=== PATIENT | female | born 1955 | race Caucasian/White ===

== ENCOUNTER 2017-05-21 12:06 | Observation (INO) | payer OTHER ==
[~2017-05-21] VITALS: Ht 160 cm; Wt 56.4 kg
[2017-05-21] MEDS ORDERED: BUPROPION XL300 MG PO (12:51)
[2017-05-21] MEDS ORDERED: DULERA 200 MCG8.8 GM INH (12:52)
[2017-05-21] MEDS ORDERED: SPIRIVA18 MCG INH (12:52)
[2017-05-21] MEDS ORDERED: PROVENTIL HFA6.7 GM INH (12:52)
[2017-05-21] MEDS ORDERED: XANAX0.25 MG PO (12:53)
[2017-05-21] MEDS ORDERED: TRIAMTERENE-HCT1 TA1 PO (12:55)
--- NOTE | 2017-05-21 13:00 | NUR ---
ADMITTED TO ROOM [address] PRIEST'S OFFICE AT THIS TIME. ALERT AND ORIENTED AND AMBULATES INDEPENDENTLY. IV TO RIGHT FOREARM X2 ATTEMPTS. HISTORY AND ASSESSMENT DONE PER FLOWSHEET. ORIENTED PT TO ROOM AND CALL LIGHT. DENIES NEEDS FOR PAIN OR NAUSEA MEDICATION AT THIS TIME. WILL CONTINUE WITH PLAN OF CARE.
[2017-05-21 13:03] VITALS: BP 107/66; Ht 160 cm; Wt 56.4 kg
[2017-05-21 13:51] LABS: BASOPHILS 0.8 % (0-2); HEMATOCRIT 39.9 % (36.0-48.0); HEMOGLOBIN 13.1 g/dL (12-16); IMMATURE GRANULOCYTES 0.2 % (0-5); LYMPHOCYTES 32.5 % (15-50); MCH 29.2 pg (26.0-34.0); MCHC 32.8 g/dL (31.0-37.0); MCV 89.1 fL (80.0-100.0); MONOCYTES 7.5 % (2-11); PLATELET COUNT 203 10x3/uL (130-400); RBC 4.48 10x6/uL (4.00-5.40); RDW 13.5 % (11.5-14.5); WBC 4.8 10x3/uL (4.8-10.8)
[2017-05-21 13:58] LABS: INR 0.95 (0.85-1.17); PROTIME 12.5 SECONDS (11.6-15.0)
[2017-05-21 14:15] LABS: ALBUMIN 3.6 g/dL (3.4-5.0); ALKALINE PHOSPHATASE 63 U/L (46-116); ALT (SGPT) 24 U/L (10-68); AMYLASE - SERUM 51 U/L (25-115); BILIRUBIN - INDIRECT 0.26 mg/dL (0.00-1.00); BILIRUBIN - TOTAL 0.36 mg/dL (0.2-1.3); CALC OSMOLALITY 277 mosm/kg (275-300); CALCIUM 8.4 mg/dL (8.5-10.1); CARBON DIOXIDE 28.3 mmol/L (21.0-32.0); CHLORIDE - SERUM 104 mmol/L (98-107); CREATININE - SERUM 0.7 mg/dL (0.6-1.3); GLUCOSE 78 mg/dL (74-106); LIPASE 160 U/L (73-393); POTASSIUM - SERUM 3.8 mmol/L (3.5-5.1); PROTEIN - SERUM 6.5 g/dL (6.4-8.2); SODIUM 139 mmol/L (136-145); UREA NITROGEN 15 mg/dL (7-18); eGFR NON AFRICAN AMERICAN 90 mL/min (90-120)
[2017-05-21 16:15] VITALS: BP 97/54
--- NOTE | 2017-05-21 18:10 | NUR ---
IV TO RIGHT FOREARM D/C WITH CATH TIP INTACT. DISCHARGE INSTRUCTIONS REVIEWED WITH PT AND SHE DENIES QUESTIONS OR CONCERNS. ORDER FOR SURGERY FAXED TO [facility], SO THAT IT COULD BE SCHEDULED FOR SUNDAY.
== END 2017-05-21 18:20 | disposition home or self-care (01) ==
LOC: D.MS 12:06 → OBSVTIME 12:06 → D.MS 18:20
PROVIDERS: ADMIT Family Medicine
DX: K80.70 Calculus of gallbladder and bile duct without cholecystitis without obstruction (principal); F41.9 Anxiety disorder, unspecified; J45.909 Unspecified asthma, uncomplicated

== ENCOUNTER 2017-05-23 07:21 | Day surgery (SDC) | payer OTHER ==
[~2017-05-23] VITALS: Ht 160 cm; Wt 59.4 kg
[~2017-05-23 07:21] MED LIST: BUPROPION XL300 MG PO; DULERA 200 MCG8.8 GM INH; PROVENTIL HFA6.7 GM INH; SPIRIVA18 MCG INH; TRIAMTERENE-HCT1 TA1 PO; XANAX0.25 MG PO
[2017-05-23 08:17] VITALS: BP 99/65; Ht 160 cm; Wt 59.4 kg
[2017-05-23] MEDS ORDERED: HYDROCODON-ACE1 EAC7 PO (13:52)
== END 2017-05-23 16:15 | disposition home or self-care (01) ==
LOC: D.PAN 07:21 → D.OPS 10:15 → D.PAN 10:15 → D.OPS 10:45 → D.PAN 16:15
DX: K81.1 Chronic cholecystitis (principal); Z01.812 Encounter for preprocedural laboratory examination

== ENCOUNTER → 2018-04-10 09:47 | Outpatient (CLI) | payer OTHER ==
[2017-05-23 08:17] VITALS: BMI 23.2
[~2018-04-10 09:47] MED LIST changes: +HYDROCODON-ACE1 EAC7 PO
== END | disposition home or self-care (01) ==
LOC: D.US 09:47
DX: R60.0 Localized edema (principal)

== ENCOUNTER 2018-09-26 07:20 | Outpatient (CLI) | payer OTHER ==
[2018-09-24 11:19] LABS: HEMATOCRIT 41.8 % (36.0-48.0); HEMOGLOBIN 13.7 g/dL (12-16); MCH 29.3 pg (26.0-34.0); MCHC 32.8 g/dL (31.0-37.0); MCV 89.5 fL (80.0-100.0); MEAN PLATELET VOLUME 10.4 fL (7.4-10.4); RBC 4.67 10x6/uL (4.00-5.40); RDW 13.6 % (11.5-14.5); WBC 6.8 10x3/uL (4.8-10.8)
[2018-09-24 11:39] LABS: ANION GAP 13.2 mmol/L (8-16); CALCIUM 8.8 mg/dL (8.5-10.1); CARBON DIOXIDE 27.2 mmol/L (21.0-32.0); CREATININE - SERUM 1.1 mg/dL (0.6-1.3); POTASSIUM - SERUM 4.4 mmol/L (3.5-5.1)
[~2018-09-26] VITALS: Ht 160 cm; Wt 66.2 kg
[~2018-09-26 07:20] MED LIST changes: +ADVAIR HFA [SP]12 GM INH
[2018-09-26 07:45] VITALS: BP 105/60; Ht 160 cm; Wt 66.2 kg
== END 2018-09-26 14:40 | disposition home or self-care (01) ==
LOC: D.OPS 07:20 → EDSTATUS 07:30 → D.OPS 08:00
PROVIDERS: Anesthesiology
DX: N81.10 Cystocele, unspecified (principal); Z01.810 Encounter for preprocedural cardiovascular examination; Z01.811 Encounter for preprocedural respiratory examination; Z01.812 Encounter for preprocedural laboratory examination; Z53.9 Procedure and treatment not carried out, unspecified reason

== ENCOUNTER → 2018-11-13 08:25 | Outpatient (CLI) | payer OTHER ==
[2018-09-26 07:45] VITALS: BMI 25.9
--- NOTE | 2018-11-19 10:22 | ST ---
PATIENT:ALEJANDRO SAENZ MEDICAL RECORD: [id number] SEX: F LOCATION:[facility] ORDER #: ADMISSION DATE: 11/13/18 AGE OF PATIENT: 63 REFERRING PHYSICIAN: INTERPRETING PHYSICIAN: CHERIE BUSH MD DATE OF SERVICE: 11/13/2018 PROCEDURE: Nuclear stress test. INDICATION: Chest pain, syncope, palpitations. She was exercised on standard Lexiscan protocol with 33 mCi of sestamibi injected at peak stress, 10 mCi were used previously for rest images. FINDINGS: Gated SPECT reveals preserved ejection fraction at 60% with good wall motion and thickening and brightening throughout all segments. SPECT imaging Cardiolite was used as myocardial fusion agent. There is homogeneous uptake throughout all segments at rest and stress with no evidence of inducible ischemia or previous infarction. OVERALL IMPRESSION: 1. This is a normal nuclear stress test with no evidence of inducible ischemia or previous infarction. 2. Gated SPECT reveals a preserved ejection fraction at 60%. In this patient with ongoing symptomatology, the current scan does not suggest the presence of hemodynamically significant coronary artery disease. Evaluate noncardiac etiology of chest pain. TRANSINT:[id number] Voice Confirmation ID: [id number] DOCUMENT ID: [id number] CHERIE BUSH MD at 1022 CC: MAUREEN PRIEST [id number] DICTATION DATE: 11/13/18 1535 ANESTHESIOLOGIST ATTENDING: 11/14/18 0745 [facility] CLI 11/13/18 [facility] [address] [place] [address]
== END | disposition home or self-care (01) ==
LOC: D.HCCARDIO 08:25
DX: R55 Syncope and collapse (principal)

== ENCOUNTER 2019-06-05 11:23 | Outpatient (CLI) | payer MEDICARE, OTHER ==
[~2019-06-05] VITALS: Ht 160 cm; Wt 65.2 kg
--- NOTE | ~2019-06-05 | HEMODYNAMI ---
PATIENT:ALEJANDRO SAENZ MEDICAL RECORD: [id number] : 53 LOCATION:[facility] ADMISSION DATE: 06/05/19 Generatedon:06/05/201914:39 Patient name: ALEJANDRO SAENZ Patient #: [id number] SSN: [id number] : 1955 Date of study: 06/05/2019 Page: Of Hemodynamic Procedure Report Patient Data Patient Demographics Procedure consent was obtained First Name: ALEJANDRO Gender: Female Last Name: DANY : 1955 Middle Initial: DONNA Age: 64 year(s) Patient #: [id number] Race: Unknown SSN: [id number] Additional ID: [id number] Contact details [address]: [address] [place] [address] State: [place] City: [place] Zip code: [address] Admission Admission Data Admission Date: 06/05/2019 Admission Time: 11:23 Arrival Date: 06/05/2019 Arrival Time: 13:30 Admit Source: Other Insurance Payor: Medicare Procedure Procedure Types Cath Procedure Diagnostic Procedure PPM/ICD Loop Recorder Implant Procedure Description Procedure Date Procedure Date: 06/05/2019 Procedure Start Time: 14:25 Procedure End Time: 14:34 Procedure Staff Name Function Yola Brock RT Monitor Oliver Alatorre RN Nurse Codey Sanchez MD Performing Physician Bernadette Vance RT Scrub Procedure Data Cath Procedure Estimated blood loss: 2 ml Procedure Complications No complications Procedure Medications Medication Administration Route Dosage Oxygen etCO2 Nasal cannula 2 l/min Lidocaine 2% added to field 20 Vancomycin I.V.P.B 500 mg Versed I.V. 2 mg Fentanyl I.V. 50 mcg Fentanyl I.V. 50 mcg Hemodynamics Rest Heart Rate: 65 (bpm) Snapshots Pre Cath Intra NCS Post Cath Vital Signs Time Heart Resp SPO2 etCO2 NIBP (mmHg) Rhythm Pain Sedation Rate (ipm) (%) (mmHg) Status Level (bpm) 13:53:32 76 18 92 0 119/77(104) NSR 0 (11) 10(A) , No pain 13:57:40 77 14 94 0 124/78(99) NSR 0 (11) 10(A) , No pain 14:01:49 74 13 96 39 118/73(95) NSR 0 (11) 10(A) , No pain 14:05:57 78 12 95 39 112/71(95) NSR 0 (11) 10(A) , No pain 14:10:05 76 12 96 42.7 111/69(89) NSR 0 (11) 10(A) , No pain 14:14:11 72 12 97 36.7 105/69(86) NSR 0 (11) 10(A) , No pain 14:18:17 65 22 98 37.4 114/64(91) NSR 0 (11) 10(A) , No pain 14:22:24 71 11 96 35.9 103/66(80) NSR 0 (11) 10(A) , No pain 14:26:28 72 14 98 40.4 109/68(83) NSR 0 (11) 10(A) , No pain 14:30:34 71 12 99 38.9 115/72(85) NSR 0 (11) 10(A) , No pain 14:34:40 67 13 98 38.2 112/75(89) NSR 0 (11) 10(A) , No pain Medications Time Medication Route Dose Verified Delivered Reason Notes Effectiv eness by by 14:00:46 Oxygen etCO2 2 Codey Boyd used for Nasal l/min St Chandu Alatorre RN procedure cannula 14:00:54 Lidocaine added 20ml Codey Alegre for local 2% to vial LauraChandu Sanchez anesthetic field MD CAZARES 14:01:11 Vancomycin I.V.P.B [address] Per mg [address] Chandu Alatorre RN physician 14:13:03 Versed I.V. 2 [address] Chandu Alatorre RN sedation 14:13:08 Fentanyl I.V. 50 Codey Boyd for mcg [address] Chandu Alatorre RN sedation 14:17:26 Fentanyl I.V. [address] for mcg [address] Chandu Alatorre RN sedation Procedure Log Time Note 13:37:18 Informed consent obtained and on chart 13:37:27 Diagnostic Cath Status : Elective 13:40:28 Admit Source: Other 13:40:41 Arrival Date: 06/05/2019 1:30:00 PM 13:41:06 Insurance Payor : Medicare 13:41:27 Oliver Alatorre RN sent for patient. Start room use. 13:41:34 ACC Patient presents with Non-STEMI CCS Anginal Class 0--No symptoms, no angina. 13:41:49 Procedure Status PPM/ Gen Change/ Lead Revision/ Temp. 13:41:51 Time tracking: Regular hours (M-F 7:00 - 5:00) 13:41:55 Plan of Care:Hemodynamics will remain stable., Cardiac rhythm will remain stable., Comfort level will be maintained., Respiratory function will remain adequate., Patient/ family verbilizes understanding of procedure., Procedure tolerated without complication., Recovers from procedure without complications.. 13:48:14 Patient received from Pre/Post Procedure Room to CCL 2 Alert and oriented. Tansferred to table in Supine position. 13:48:16 Correct patient and procedure confirmed by team. 13:48:16 Warm blankets applied, and curtis hugger turned on for patient comfort. 13:48:17 ECG and BP/O2 sat monitors applied to patient. 13:52:26 Vital chart was started 13:52:59 Baseline sample Acquired. 13:53:03 Rhythm: sinus rhythm 13:53:06 Full Disclosure recording started 13:53:18 H&P Date Dictated: 06/05/2019 Within 30 days and on chart., H&P Addendum completed by physician on day of procedure. (MUST COMPLETE FOR ALL OUTPATIENTS). 13:53:19 Pre-procedure instructions explained to patient. 13:53:20 Pre-op teaching completed and patient verbalized understanding. 13:53:25 Family in waiting room. 13:53:35 Patient NPO since Midnight. 13:53:39 Is the patient allergic to Iodine/contrast media? No. 13:53:41 Was the patient premedicated? No 13:53:54 Is patient on blood thinner?No 13:53:55 Patient diabetic? No. 13:54:01 Previous problem with sedation/anesthesia? No ? 13:54:06 Snore? Yes 13:54:07 Sleep apnea? No 13:54:08 Deviated septum? No 13:54:09 Opens mouth fully? Yes 13:54:10 Sticks out tongue? Yes 13:54:16 Airway obstruction? Yes copd 13:54:21 Dentures? No ? 13:57:29 Pre procedure: right dorsailis pedis pulse 2+ Normal; easily identifiable; not easily obliterated 13:57:31 Pre procedure: left dorsailis pedis pulse 2+ Normal; easily identifiable; not easily obliterated 13:57:35 Patient pain scale 0/10 ?. 13:57:49 IV patent on arrival in left forearm with 0.9% NaCl at [facility]. 13:57:51 Lab results completed and on chart. 13:57:59 Mid Chest area was prepped with chlora-prep and draped in sterile fashion 13:58:00 Sharps counted by scrub and verified by R.N. 13:58:00 Alarms reviewed by R. N. 13:58:03 Physician paged 14:00:46 Oxygen 2 l/min etCO2 Nasal cannula was administered by Oliver Alatorre RN; used for procedure; 14:00:54 Lidocaine 2% 20ml vial added to field was administered by Codey Sanchez MD; for local anesthetic; 14:01:11 Vancomycin 500 mg I.V.P.B was administered by Oliver Alatorre RN; Per physician; 14:04:05 [employer] customer engagement representative sofiya villareal present for procedure. 14:09:27 Physician arrived 14:09:28 --------ALL STOP TIME OUT------ 14:09:29 Final Timeout: patient, procedure, and site verified with staff and physician. All members of the team are in agreement. 14:09:36 Mid Chest site verified by team. 14:09:41 Fire Safety Assessment: A--An alcohol-based skin anteseptic being used preoperatively., C--Open oxygen or nitrous oxide is being used., D--An ESU, laser, or fiber-optic light is being used. 14:09:52 Physical assessment completed. ASA score P 2 - A patient with mild systemic disease as per Codey Sanchez MD. 14:10:14 Sedation plan: IV Moderate Sedation Medication:Versed, Fentanyl 14:13:03 Versed 2 mg I.V. was administered by Oliver Alatorre RN; for sedation; 14:13:08 Fentanyl 50 mcg I.V. was administered by Buffie Alatorre RN; for sedation; 14:17:26 Fentanyl 50 mcg I.V. was administered by Oliver Alatorre RN; for sedation; 14:22:18 Pre sharps counted by scrub and verified by RN: Sutures: 0; Sponges: 5; Stick needles: 0; Skin needles: 1; Blade: 1; Cautery: 0 14:22:30 Procedure started. 14:25:55 Lidocaine 2% was administered to mid chest by Codey Sanchez MD . 14:25:59 Incision made to mid chest. 14:29:57 Linq was inserted subcutaneously to mid chest. 14:33:29 incision closed with dermabond 14:33:42 Mid Chest incision was dressed with Mepilex dressing. 14:33:50 Procedure ended.(Physican Out) 14:33:54 Insertion/operative site no bleeding no hematoma. 14:33:59 Post procedure rhythm: unchanged. 14:34:02 Estimated blood loss: 2 ml 14:34:04 Post procedure instruction explained to patient.Patient verbalizes understanding. 14:34:11 Procedure and supply charges have been captured, reviewed, submitted and are correct. 14:34:16 Procedure Complication : No complications 14:34:18 Vital chart was stopped 14:34:19 See physician's report for complete and final results. 14:34:22 Report given to Pre/Post Procedure Room. 14:34:35 Patient transfered to Pre/Post Procedure Room with Stretcher. 14:34:39 Full Disclosure recording stopped 14:34:39 Procedure ended. 14:34:44 End room use (Document Last) 14:35:47 Dermabond Pen opened to sterile field. 14:36:28 Medtronic Linq Loop Recorder opened to sterile field. Device Usage Item Name Manufacture Quantity Catalog Hospital Part Current Minimal Lot# / Number Charge Number Stock Stock Serial# Code Dermabond Ethicon 1 [id number] 5 Pen Medtronic Medtronic 1 [id number] 5 Linq Loop Recorder Signature Audit [place] Stage Time Signature Unsigned Intra-Procedure 06/05/2019 Yola Brock 2:39:04 PM RT(R) Signatures Monitor : Yola Brock RT Signature : Date : Time : Nurse : Buffie Alatorre RN Signature : Date : Time : Performing Physician : Signature : Codey Nicolas John MD Date : Time : [address] [place] [address]
[2019-06-05] MEDS ORDERED: PROPAFENONE HC225 MG PO (12:02)
[2019-06-05] MEDS ORDERED: SPIRIVA RESPIMAT4 G1 INH (12:03)
[2019-06-05] MEDS ORDERED: ALBUTEROL SULF8.5 GM INH (12:03)
[2019-06-05] MEDS ORDERED: DULERA 200 MCG8.8 GM INH (12:03)
[2019-06-05 12:14] VITALS: BP 129/57; Ht 160 cm; Wt 65.2 kg
--- NOTE | 2019-06-05 14:50 | NUR ---
PT RECEIVED VIA STRETCHER FROM [facility] [employer] PER Rafael NOVOA RN. PT DROWSY BUT RESPONDS TO VERBAL STIMULI. BANDAGE TO UPPER L CHEST, CDI. PT DENIES PAIN OR DISCOMFORT. MONITORS ON, HR 74, BP 119/69, O2 SAT 93 ON ROOM AIR. CALL LIGHT IN REACH, PT DENIES NEEDS
--- NOTE | 2019-06-05 15:15 | NUR ---
[employer] LAW RN FROM [employer] AT BEDSIDE LINKING DEVICE FOR PT. SHE WAS INSTRUCTED ON USE AND WHERE TO PLACE MONITOR AT HOME. HR 71. PT DENIES PAIN OR DISCOMFORT. DRESSING CDI. CALL LIGHT IN REACH
--- NOTE | 2019-06-05 15:20 | NUR ---
VANC IVPB COMPETED. NS INFUSING VIA ORDERS. PT RESTING COMFORTABLY.
--- NOTE | 2019-06-05 15:45 | NUR ---
HOB ELEVATED, SANDWICH TRAY SERVED. PT DENIES PAIN OR DISCOMFORT. HR 87. DRESSING REMAINS CDI. INSTRUCTIONS REVIEWED W PT ON MONITOR AND HANDHELD DEVICE, SHE VERBALIZED UNDERSTANDING
--- NOTE | 2019-06-05 15:55 | NUR ---
IV REMOVED W CATH INTACT, MONITORS OFF AND PT UP TO DRESS FOR DISCHARGE.
--- NOTE | 2019-06-05 16:08 | NUR ---
1600 DISCHARGE INSTRUCTIONS REVIEWED W PT, SHE VERBALIZED UNDERSTANDING. PT DISCHARGED TO PRIVATE VEHICLE WITH ALL BELONGINGS AND LINQ DEVICES IN BOX.
--- NOTE | 2019-06-15 09:24 | OP ---
PATIENT NAME: ALEJANDRO SAENZ MEDICAL RECORD: [id number] :53 LOCATION:D.CAT ADMISSION DATE: SURGEON: RADHA BARON MD DATE OF OPERATION: 06/05/2019 PROCEDURE: Linq device. INDICATIONS: Near syncope with a negative noninvasive monitoring. DESCRIPTION OF PROCEDURE: After general sedation, an incision was made into the left fourth intercostal space. Linq was placed without difficulty and closed with Dermabond. IMPRESSION: Successful Linq placement. ESTIMATED BLOOD LOSS: Minimal. DISPOSITION: To the floor, stable. TRANSINT:[id number] Voice Confirmation ID: [id number] DOCUMENT ID: [id number] RADHA BARON MD at 0924 CC: [id number] DICTATION DATE: 06/12/19 1233 KNITTING MACHINE MECHANIC: 06/12/19 1310 DEP CLI 06/05/19 [place] [id number] [place] [address]
== END 2019-06-05 14:10 | disposition home or self-care (01) ==
LOC: D.CATH 11:23
PROVIDERS: ATTEND Internal Medicine Interventional Cardiology
DX: R55 Syncope and collapse (principal); Z01.812 Encounter for preprocedural laboratory examination

== ENCOUNTER → 2019-06-18 08:44 | Outpatient (CLI) | payer MEDICARE, OTHER ==
[2019-06-05 12:14] VITALS: BMI 25.4
[~2019-06-18 08:44] MED LIST changes: +ALBUTEROL SULF8.5 GM INH; +PROPAFENONE HC225 MG PO; +SPIRIVA RESPIMAT4 G1 INH
--- NOTE | 2019-06-26 08:42 | EC ---
PATIENT:ALEJANDRO SAENZ DATE OF SERVICE: 06/18/19 SEX: F MEDICAL RECORD: [id number] DATE OF : 53 LOCATION:[facility] AGE OF PATIENT: 64 ADMISSION DATE: 06/18/19 REFERRING PHYSICIAN: INTERPRETING PHYSICIAN: RADHA BARON MD ECHOCARDIOGRAM REPORT ECHO CHARGES 4 ECHO COMPLETE Date: 06/18/19 CLINICAL DIAGNOSIS: PALPITATIONS/TACHYCARDIA/SOB/ PRE-SYNCOPE ECHOCARDIOGRAPHIC MEASUREMENTS (adult normal given) AC root (d.<3.7cm) 3.0 cm LV Septum d (<1.2 cm> 1.2 cm Valve Excursion 1.8 cm LV Septum (systole) 1.9 cm Left Atria (s.<4.0cm> 2.9 cm LVPW d(<1.2cm) 1.2 cm RV (d.<2.3cm) 3.0 cm LVPW (sytole) 1.9 cm LV diastole(<5.6CM) 4.6 cm MV E-F(>70mm/sec) cm LV systole 2.3 cm LVOT Diameter 1.7 cm MV exc.(>10mm) cm Est.ejection fraction (50-75%) % DOPPLER: LVIT cm/sec A 95.0 cm/sec E 63.0 cm/sec LA cm/sec RVSP 26.0 mmHg LVOT 105 cm/sec AOP1/2T m/s Asc. Ao 143 cm/sec RVOT 59.0 cm/sec RA cm/sec PA 105 cm/sec AV Gradient Peak 8.2 mmHg AV Mean 4.0 mmHg AV Area 1.6 cm MV Gradient Peak 3.3 mmHg MV Mean 1.5 mmHg MV Area cm COMMENTS: OP - HC Gluten Settling Tender: Linnette CORDOBA THANH Cloud Infrastructure Architect: 3 Dr. Stein TAPE# PACS Pericardial Effusion N DATE OF SERVICE: 06/18/2019 Adequate 2-D, color-flow and spectral Doppler, and M-mode. Borderline LVH. LV internal dimensions are normal. Wall motion is normal. EF is greater than 55%. Aortic valve is tricuspid. No evidence of stenosis by Doppler interrogation. Left atrium is normal. Mitral valve shows no prolapse. Trace MR. Right-sided chambers are grossly normal. Trace TR. TRANSINT:[id number] Voice Confirmation ID: [id number] DOCUMENT ID: [id number] ECHOCARDIOGRAM REPORT [id number] ALEJANDRO SAENZ,RADHA Ruiz MD at 0842 CC: [id number] DICTATION DATE: 06/19/19 140 TRACK HELPER: 06/19/19 1446 DEP CLI 06/18/19 [place] [address] [place] [id number]
== END | disposition home or self-care (01) ==
LOC: D.HCCARDIO 08:44
PROVIDERS: ATTEND Internal Medicine Interventional Cardiology
DX: R00.2 Palpitations (principal)

== ENCOUNTER → 2020-05-31 07:26 | Outpatient (CLI) | payer MEDICARE, OTHER ==
[2019-06-05 12:14] VITALS: BMI 25.4
== END | disposition home or self-care (01) ==
LOC: D.MRI 07:26 → D.CT 09:00
PROVIDERS: ATTEND Family Medicine
DX: R27.0 Ataxia, unspecified (principal); M62.81 Muscle weakness (generalized); R91.1 Solitary pulmonary nodule

== ENCOUNTER 2021-03-03 15:21 | Inpatient (IN) | payer MEDICARE, OTHER ==
[~2021-03-03] VITALS: Ht 160 cm; Wt 61.2 kg
--- NOTE | 2021-03-03 15:36 | NUR ---
RT CALLED FOR ABG ET UPDRAFT.
[2021-03-03 15:42] LABS: BASOPHILS 0.4 % (0-2); EOSINOPHILS 0.7 % (0-7); HEMATOCRIT 44.4 % (36.0-48.0); HEMOGLOBIN 14.3 g/dL (12-16); IMMATURE GRANULOCYTES 0.1 % (0-5); LYMPHOCYTE ABS# 1.48 10x3/uL (1.18-3.74); LYMPHOCYTES 21.1 % (15-50); MCH 28.5 pg (26.0-34.0); MCHC 32.2 g/dL (31.0-37.0); MCV 88.6 fL (80.0-100.0); MEAN PLATELET VOLUME 10.8 fL (7.4-10.4); MONOCYTES 6.4 % (2-11); NEUTROPHIL ABS# 5.01 10x3/uL (1.56-6.13); NEUTROPHILS 71.3 % (40-80); PLATELET COUNT 241 10x3/uL (130-400); RBC 5.01 10x6/uL (4.00-5.40); RDW 13.6 % (11.5-14.5)
[2021-03-03 15:56] LABS: CALC OSMOLALITY 276 mosm/kg (275-300); CALCIUM 9.3 mg/dL (8.5-10.1); CARBON DIOXIDE 31.6 mmol/L (21.0-32.0); CHLORIDE - SERUM 101 mmol/L (98-107); CREATININE - SERUM 0.8 mg/dL (0.6-1.3); GLUCOSE 98 mg/dL (74-106); POTASSIUM - SERUM 4.3 mmol/L (3.5-5.1); SODIUM 139 mmol/L (136-145); UREA NITROGEN 10 mg/dL (7-18); eGFR NON AFRICAN AMERICAN 76 mL/min (90-120)
[2021-03-03 15:57] LABS: APTT 29.8 SECONDS (22.8-39.4); INR 1.07 (0.85-1.17); PROTIME 12.9 SECONDS (11.6-15.0)
[2021-03-03 16:05] LABS: ALBUMIN 3.9 g/dL (3.4-5.0); ALKALINE PHOSPHATASE 78 U/L (30-120); ALT (SGPT) 24 U/L (10-68); BILIRUBIN - TOTAL 0.52 mg/dL (0.2-1.3); CKMB 7.2 U/L (0.0-3.6); CREATINE KINASE 174 UL (21-215); PRO BNP 126 pg/mL (0-125); PROTEIN - SERUM 7.6 g/dL (6.4-8.2)
[2021-03-03 16:07] LABS: TROPONIN-I < 0.017 ng/mL (0.000-0.060)
[2021-03-03 17:00] VITALS: BP 110/58
--- NOTE | 2021-03-03 19:03 | NUR ---
BS REPORT TO MARTITA ORTIZ
[2021-03-03 19:54] VITALS: BP 145/67
[2021-03-03] MEDS ORDERED: LANOXIN125 MCG PO (20:12)
[2021-03-04 00:37] VITALS: BP 98/55
[2021-03-04 01:01] VITALS: BP 98/55; BMI 26.4
[2021-03-04 15:26] VITALS: BP 115/65
[2021-03-04 20:18] VITALS: BP 118/68
[2021-03-05 00:05] VITALS: BP 109/66
[2021-03-05 03:37] VITALS: BP 115/72
[2021-03-05 05:59] LABS: BASOPHILS 0 % (0-2); EOSINOPHILS 0 % (0-7); HEMATOCRIT 43.6 % (36.0-48.0); HEMOGLOBIN 13.6 g/dL (12-16); IMMATURE GRANULOCYTES 0.1 % (0-5); LYMPHOCYTE ABS# 1.33 10x3/uL (1.18-3.74); LYMPHOCYTES 15.4 % (15-50); MCHC 31.2 g/dL (31.0-37.0); MCV 89.9 fL (80.0-100.0); MEAN PLATELET VOLUME 11.1 fL (7.4-10.4); MONOCYTES 1.7 % (2-11); NEUTROPHIL ABS# 7.13 10x3/uL (1.56-6.13); NEUTROPHILS 82.8 % (40-80); PLATELET COUNT 256 10x3/uL (130-400); RBC 4.85 10x6/uL (4.00-5.40); RDW 13.5 % (11.5-14.5); WBC 8.6 10x3/uL (4.8-10.8)
[2021-03-05 06:20] LABS: CALC OSMOLALITY 280 mosm/kg (275-300); CALCIUM 8.7 mg/dL (8.5-10.1); CARBON DIOXIDE 31.6 mmol/L (21.0-32.0); CHLORIDE - SERUM 104 mmol/L (98-107); CREATININE - SERUM 0.8 mg/dL (0.6-1.3); GLUCOSE 123 mg/dL (74-106); POTASSIUM - SERUM 4.3 mmol/L (3.5-5.1); SODIUM 140 mmol/L (136-145); eGFR NON AFRICAN AMERICAN 76 mL/min (90-120)
[2021-03-05 06:22] LABS: UREA NITROGEN 14 mg/dL (7-18)
--- NOTE | 2021-03-05 07:00 | NUR ---
REPORT RECEIVED. PATIENT IS AAOX4, LYING IN SEMI-FOWLERS POSITION. NO S/S OF DISTRESS OBSERVED, RR EVEN AND UNLABORED ON 4L. PIV TO RT AC, PATENT, SL. DENIES NEEDS AT THIS TIME. CL IN REACH, BED LOCKED AND LOWERED. WILL CPOC.
[2021-03-05 08:00] VITALS: BP 136/65
--- NOTE | 2021-03-05 10:43 | NUR ---
I have reviewed this patient and I concur with the Shift Assessment completed by the Licensed Practical Nurse today this shift.
[2021-03-05 12:00] VITALS: BP 114/67
[2021-03-05 16:00] VITALS: BP 129/76
--- NOTE | 2021-03-05 17:55 | NUR ---
TITRATED PATIENT DOWN TO 1L VIA NC AND SHE IS SATING 95%
--- NOTE | 2021-03-05 19:33 | NUR ---
XPATIENT RESTING IN BED WITH NO S/S OF DISTRESS AND DENIES NEEDS AT THIS TIME. BED IN LOWEST POSITION AND CALL LIGHT IN REACH. ENCOURAGED PATIENT TO CALL WITH NEEDS.
[2021-03-05 20:52] VITALS: BP 113/65
--- NOTE | 2021-03-05 21:27 | NUR ---
ADMINISTERED MEDS PER ORDERS. PATIENT JASPAL WELL. ENCOURAGED PATIENT TO CALL WITH NEEDS.
[2021-03-06 01:38] VITALS: BP 135/83
--- NOTE | 2021-03-06 05:07 | NUR ---
PATIENT VOIDED 1000 ML AFTER LASIX WAS ADMINISTERED
[2021-03-06 05:44] VITALS: BP 111/73
--- NOTE | 2021-03-06 07:00 | NUR ---
REPORT RECEIVED. PATIENT IS LYING IN SEMI-FOWLERS POSITION, RESTING WITH EYES CLOSED. NO S/S OF DISTRESS OBSERVED, RR EVEN AND UNLABORED ON 2L O2 VIA NC. NO NEEDS EXPRESSED AT THIS TIME. DAUGHTER AT BEDSIDE. CL IN REACH, BED LOCKED AND LOWERED. WILL CPOC.
[2021-03-06 08:07] VITALS: BP 105/69
--- NOTE | 2021-03-06 11:24 | NUR ---
I have reviewed this patient and I concur with the Shift Assessment completed by the Licensed Practical Nurse today this shift.
[2021-03-06 12:06] VITALS: BP 128/78
[2021-03-06 16:55] VITALS: BP 135/63
--- NOTE | 2021-03-06 17:45 | NUR ---
PATIENT REQUESTION PRN XANAX FOR ANXIETY. ADMINISTERED MED PER ORDER.
[2021-03-06 20:00] VITALS: BP 132/79
[2021-03-07] VITALS: BP 145/83
--- NOTE | 2021-03-07 03:04 | NUR ---
I have reviewed this patient and I concur with the Shift Assessment completed by the Licensed Practical Nurse today this shift.
[2021-03-07 07:09] LABS: BASOPHILS 0 % (0-2); EOSINOPHILS 0 % (0-7); HEMATOCRIT 45.3 % (36.0-48.0); HEMOGLOBIN 14.3 g/dL (12-16); IMMATURE GRANULOCYTES 0.1 % (0-5); LYMPHOCYTE ABS# 1.38 10x3/uL (1.18-3.74); LYMPHOCYTES 17.3 % (15-50); MCH 28.2 pg (26.0-34.0); MCHC 31.6 g/dL (31.0-37.0); MCV 89.3 fL (80.0-100.0); MEAN PLATELET VOLUME 11.1 fL (7.4-10.4); MONOCYTES 4.9 % (2-11); NEUTROPHIL ABS# 6.21 10x3/uL (1.56-6.13); NEUTROPHILS 77.7 % (40-80); PLATELET COUNT 258 10x3/uL (130-400); RBC 5.07 10x6/uL (4.00-5.40); RDW 13.3 % (11.5-14.5)
[2021-03-07 07:12] LABS: CALC OSMOLALITY 282 mosm/kg (275-300); CALCIUM 9.1 mg/dL (8.5-10.1); CARBON DIOXIDE 36.8 mmol/L (21.0-32.0); CHLORIDE - SERUM 100 mmol/L (98-107); CREATININE - SERUM 0.8 mg/dL (0.6-1.3); GLUCOSE 114 mg/dL (74-106); POTASSIUM - SERUM 4.3 mmol/L (3.5-5.1); SODIUM 139 mmol/L (136-145); UREA NITROGEN 24 mg/dL (7-18); eGFR NON AFRICAN AMERICAN 76 mL/min (90-120)
--- NOTE | 2021-03-07 07:13 | NUR ---
RECEIVE SHIFT REPORT. RESTING IN BED WITH EYES CLOSED. NO S/S OF DISTRESS PRESENT AT THIS TIME. DAUGHTER AT BEDSIDE. WILL CONTINUE POC AND SAFETY PRECAUTIONS.
[2021-03-07 08:23] VITALS: BP 117/72
[2021-03-07 12:22] VITALS: BP 147/89
[2021-03-07 16:04] VITALS: BP 120/67
[2021-03-07 20:00] VITALS: BP 127/79
[2021-03-08] VITALS: BP 126/81
--- NOTE | 2021-03-08 03:19 | NUR ---
I have reviewed this patient and I concur with the Shift Assessment completed by the Licensed Practical Nurse today this shift.
[2021-03-08 04:00] VITALS: BP 106/63
[2021-03-08 06:12] LABS: BASOPHILS 0 % (0-2); EOSINOPHILS 0 % (0-7); HEMOGLOBIN 14.1 g/dL (12-16); IMMATURE GRANULOCYTES 0.1 % (0-5); LYMPHOCYTE ABS# 1.17 10x3/uL (1.18-3.74); LYMPHOCYTES 15.3 % (15-50); MCH 28.5 pg (26.0-34.0); MCV 89.1 fL (80.0-100.0); MEAN PLATELET VOLUME 10.9 fL (7.4-10.4); MONOCYTES 4.2 % (2-11); NEUTROPHIL ABS# 6.16 10x3/uL (1.56-6.13); NEUTROPHILS 80.4 % (40-80); PLATELET COUNT 262 10x3/uL (130-400); RBC 4.94 10x6/uL (4.00-5.40); RDW 13.3 % (11.5-14.5); WBC 7.7 10x3/uL (4.8-10.8)
[2021-03-08 06:31] LABS: CALC OSMOLALITY 277 mosm/kg (275-300); CALCIUM 8.7 mg/dL (8.5-10.1); CARBON DIOXIDE 33.4 mmol/L (21.0-32.0); CHLORIDE - SERUM 101 mmol/L (98-107); CREATININE - SERUM 0.8 mg/dL (0.6-1.3); GLUCOSE 115 mg/dL (74-106); POTASSIUM - SERUM 4.2 mmol/L (3.5-5.1); SODIUM 138 mmol/L (136-145); eGFR NON AFRICAN AMERICAN 76 mL/min (90-120)
[2021-03-08 06:32] LABS: UREA NITROGEN 16 mg/dL (7-18)
--- NOTE | 2021-03-08 07:10 | NUR ---
RECEIVE SHIFT REPORT. RESTING IN BED WITH EYES CLOSED. AROUSES TO VOICE. DENIES ANY NEEDS AT THIS TIME. DAUGHTER AT BEDSIDE. WILL CONTINUE POC AND SAFETY PRECAUTIONS. CALL LIGHT IN REACH.
[2021-03-08 07:32] VITALS: BP 102/72
--- NOTE | 2021-03-08 10:05 | NUR ---
PATIENT DAUGHTER TALKED WITH NURSE ABOUT PATIENT NOT TAKING WELLBUTRIN AT HOME. SAYS IT HAS BEEN MONTHS AND SHE FOUND NO BOTTLES ANYWHERE IN THE HOME. STATES PATIENT IS WAKING UP CRYING AND TALKING IN HER SLEEP. TAKES XANAX TO CALM DOWN INSTEAD OF TAKING DAILY MEDICATION. DAUGHTER WOULD LIKE DR. PRIEST TO BE AWARE OF SITUATION AND TRY TO SEE IF SHE CAN HAVE SOMETHING ELSE OR DO SOMETHING ELSE. CALLED DR. PRIEST AND SPOKE WITH HIS NURSE. AWAITING CALL BACK OR TO SEE PATIENT.
[2021-03-08 11:37] VITALS: BP 132/82
[2021-03-08 13:17] VITALS: Ht 160 cm; Wt 61.2 kg
[2021-03-08 15:15] VITALS: BP 131/75
[2021-03-08 20:00] VITALS: BP 135/70
[2021-03-09] VITALS: BP 126/84
--- NOTE | 2021-03-09 04:43 | NUR ---
I have reviewed this patient and I concur with the Shift Assessment completed by the Licensed Practical Nurse today this shift.
[2021-03-09 06:59] LABS: BASOPHILS 0 % (0-2); EOSINOPHILS 0 % (0-7); HEMATOCRIT 42.8 % (36.0-48.0); HEMOGLOBIN 13.9 g/dL (12-16); IMMATURE GRANULOCYTES 0.4 % (0-5); LYMPHOCYTE ABS# 1.57 10x3/uL (1.18-3.74); LYMPHOCYTES 19.3 % (15-50); MCH 28.6 pg (26.0-34.0); MCHC 32.5 g/dL (31.0-37.0); MCV 88.1 fL (80.0-100.0); MEAN PLATELET VOLUME 10.8 fL (7.4-10.4); MONOCYTES 5.2 % (2-11); NEUTROPHILS 75.1 % (40-80); PLATELET COUNT 271 10x3/uL (130-400); RBC 4.86 10x6/uL (4.00-5.40); RDW 13.1 % (11.5-14.5); WBC 8.1 10x3/uL (4.8-10.8)
--- NOTE | 2021-03-09 07:10 | NUR ---
RECEIVE SHIFT REPORT. RESTING IN BED WITH LIGHTS OFF. DAUGHTER AT BEDSIDE. PATIENT DENIES ANY NEEDS AT THIS TIME. WILL CONTINUE POC AND SAFETY PRECAUTIONS.
[2021-03-09 07:20] LABS: CALC OSMOLALITY 272 mosm/kg (275-300); CALCIUM 8.2 mg/dL (8.5-10.1); CARBON DIOXIDE 31.8 mmol/L (21.0-32.0); CHLORIDE - SERUM 100 mmol/L (98-107); CREATININE - SERUM 0.8 mg/dL (0.6-1.3); GLUCOSE 105 mg/dL (74-106); POTASSIUM - SERUM 4.3 mmol/L (3.5-5.1); SODIUM 136 mmol/L (136-145); UREA NITROGEN 14 mg/dL (7-18); eGFR NON AFRICAN AMERICAN 76 mL/min (90-120)
[2021-03-09 08:06] VITALS: BP 177/910
[2021-03-09 11:12] LABS: IMMUNOGLOBULIN A 109 mg/dL (87-352); IMMUNOGLOBULIN G 881 mg/dL (586-1602)
[2021-03-09 12:07] VITALS: BP 121/78
--- NOTE | 2021-03-09 12:15 | EC ---
PATIENT:ALEJANDRO SAENZ DATE OF SERVICE: 03/04/21 SEX: F MEDICAL RECORD: [id number] DATE OF : 53 LOCATION:D.M2 D.212 AGE OF PATIENT: 65 ADMISSION DATE: 03/04/21 REFERRING PHYSICIAN: INTERPRETING PHYSICIAN: RADHA BARON MD ECHOCARDIOGRAM REPORT ECHO CHARGES 4 ECHO COMPLETE Date: 03/07/21 CLINICAL DIAGNOSIS: COPD, CHF, DYSPNEA ECHOCARDIOGRAPHIC MEASUREMENTS (adult normal given) AC root (d.<3.7cm) 2.9 cm LV Septum d (<1.2 cm> 1.2 cm Valve Excursion 1.7 cm LV Septum (systole) 1.4 cm Left Atria (s.<4.0cm> 3.1 cm LVPW d(<1.2cm) 0.7 cm RV (d.<2.3cm) 2.9 cm LVPW (sytole) 1.0 cm LV diastole(<5.6CM) 4.1 cm MV E-F(>70mm/sec) cm LV systole 3.2 cm LVOT Diameter 1.7 cm MV exc.(>10mm) 1.2 cm Est.ejection fraction (50-75%) % DOPPLER: LVIT cm/sec A 82 cm/sec E 62 cm/sec LA cm/sec RVSP 23 mmHg LVOT 96 cm/sec AOP1/2T m/s Asc. Ao 106 cm/sec RVOT 51 cm/sec RA cm/sec PA 80 cm/sec AV Gradient Peak 4.5 mmHg AV Mean 2.4 mmHg AV Area 1.7 cm MV Gradient Peak 3.4 mmHg MV Mean 2.0 mmHg MV Area cm COMMENTS: Cask Maker: Shreya STROUD Special Equipment Technician: 3 Dr. Stein TAPE# Pericardial Effusion N DATE OF SERVICE: Adequate 2D, color flow imaging, spectral Doppler, and M-Mode. FINDINGS: No LVH. LV internal dimension is normal. Wall motion is normal. EF is greater than or equal to 55%. Aortic valve is tricuspid. No evidence of stenosis by Doppler interrogation. Left atrium is normal. Mitral valve shows no prolapse. Trace MR. Right side is grossly normal. Trace TR. TRANSINT:[id number] Voice Confirmation ID: [id number] DOCUMENT ID: [id number] ECHOCARDIOGRAM REPORT [id number] ALEJANDRO SAENZ RADHA BARON MD at 1215 CC: [id number] DICTATION DATE: 03/08/21 1340 ENGINEER DESIGN AND CONSTRUCTION: 03/08/21 1636 ADM IN [place] [id number] [place] [address]
--- NOTE | 2021-03-09 19:45 | NUR ---
IV TO RIGHT FOREARM RED AND SWOLLEN, IV CATH REMOVED, TIP IN TACT. PT DOESNT WANT NEW IV SITED, PT STATED THAT DR SNOW TOLD HER THAT HE WAS CHANGING EVERYTING TO PO AND THAT SHE WAS GOING HOME IN THE MORNING.
[2021-03-09 23:28] VITALS: BP 122/64
[2021-03-10] VITALS: BP 112/67
[2021-03-10 04:00] VITALS: BP 141/74
[2021-03-10 07:36] LABS: BASOPHILS 0 % (0-2); EOSINOPHILS 0.4 % (0-7); HEMATOCRIT 42.8 % (36.0-48.0); HEMOGLOBIN 13.5 g/dL (12-16); IMMATURE GRANULOCYTES 0.1 % (0-5); LYMPHOCYTE ABS# 2.32 10x3/uL (1.18-3.74); LYMPHOCYTES 31.4 % (15-50); MCH 28.1 pg (26.0-34.0); MCHC 31.5 g/dL (31.0-37.0); MEAN PLATELET VOLUME 10.9 fL (7.4-10.4); MONOCYTES 10.1 % (2-11); NEUTROPHIL ABS# 4.28 10x3/uL (1.56-6.13); PLATELET COUNT 261 10x3/uL (130-400); RBC 4.81 10x6/uL (4.00-5.40); RDW 13.1 % (11.5-14.5); WBC 7.4 10x3/uL (4.8-10.8)
[2021-03-10] MEDS ORDERED: LEXAPRO10 MG PO (07:46)
[2021-03-10] MEDS ORDERED: SINGULAIR10 MG PO (07:47)
[2021-03-10] MEDS ORDERED: IPRAT-ALBUT 0.5-3 ML UPD (07:49)
[2021-03-10] MEDS ORDERED: DOXYCYCLINE HY100 M2 PO (07:51)
[2021-03-10 07:52] LABS: CALC OSMOLALITY 270 mosm/kg (275-300); CARBON DIOXIDE 31.9 mmol/L (21.0-32.0); CHLORIDE - SERUM 100 mmol/L (98-107); CREATININE - SERUM 0.7 mg/dL (0.6-1.3); POTASSIUM - SERUM 3.7 mmol/L (3.5-5.1); SODIUM 136 mmol/L (136-145); UREA NITROGEN 15 mg/dL (7-18); eGFR NON AFRICAN AMERICAN 89 mL/min (90-120)
[2021-03-10 07:54] LABS: GLUCOSE 63 mg/dL (74-106)
[2021-03-10] MEDS ORDERED: MEDROL DOSE PACK4 MG PO (07:58)
[2021-03-10] MEDS ORDERED: DIFLUCAN150 MG PO (08:04)
[2021-03-10 08:22] VITALS: BP 137/81
--- NOTE | 2021-03-10 10:32 | NUR ---
PATIENT AAOX4 SITTING IN BED, RESP EVEN AND NON LABORED, NO S/S OF DISTRESS, MEDICATIONS ADMINISTERED WITH NO COMPLICATIONS, NO FURTHER NEEDS AT THIS TIME, CLIR, BLP
--- NOTE | 2021-03-10 11:11 | MORECARE ---
CASE MANAGEMENT DISCHARGE SUMMARY PATIENT: ALEJANDRO SAENZ UNIT: [id number] ADM DATE: 03/04/21 AGE: 65 : [birth year] SEX: F [facility] AUTHOR: MECHE,DOC PHYSICIAN: REFERRING PHYSICIAN: MAUREEN PRIEST MD DATE OF SERVICE: 03/10/21 Case Management Discharge Planning Summary DCP REVIEW SUMMARY ANTICIPATED D/C DATE: 03/10/2021 EXPECTED LOS : 6 CASE STATUS: DCP Initiated INITIAL REVIEW: 03/03/2021 INITIAL REVIEWER: Ashely Plummer FINAL DISCHARGE DISPOSITION: : FINAL REVIEWER: FINAL REVIEW DATE: DCP [employer] Questions [employer] Answers QUESTION: ANSWER : PATIENT: ALEJANDRO SAENZ ENCOUNTER: [id number] MEDICAL RECORD#: [id number] ADMISSION DATE: 03/04/2021 DISCHARGE DATE: ATTENDING MD: MAUREEN OLIVA : AGE: 65 MARITAL STATUS: S DC PLAN ID: [id number] FACILITY: [facility] PRINTED ON: 03/10/21 11:11 CT All edits/amendments must be made on the electronic document DICTATION DATE: 03/10/21 1111 DIP FILLER: DM 03/10/21 1111 RPT#: [id number] DC DATE: STATUS: ADM IN [facility] [address] [place] [address] END OF REPORT
--- NOTE | 2021-03-10 11:45 | MORECARE ---
CASE MANAGEMENT DISCHARGE SUMMARY PATIENT: ALEJANDRO SAENZ UNIT: [id number] ADM DATE: 03/04/21 AGE: 65 : 54 SEX: F ROOM/BED: D.9811 AUTHOR: VINICIO MCGREGOR PHYSICIAN: REFERRING PHYSICIAN: MAUREEN PRIEST MD DATE OF SERVICE: 03/10/21 Case Management Discharge Planning Summary DCP REVIEW SUMMARY ANTICIPATED D/C DATE: 03/10/2021 EXPECTED LOS : 6 CASE STATUS: DCP Initiated INITIAL REVIEW: 03/03/2021 INITIAL REVIEWER: Ashely Plummer FINAL DISCHARGE DISPOSITION: : FINAL REVIEWER: FINAL REVIEW DATE: DCP Focus Questions & Answers DCP Screen QUESTION: ANSWER High Risk Factors: : None Walking limitation: Patient stated self rated walking limitation present? : No Prior living environment: : Lives Alone Disability ranking: : Grade 1: No significant disability DCP Evaluation QUESTION: ANSWER Patient and/or caregiver agree upon recommended discharge plan? : Yes Family / Caregiver's ability to cope with chronic illness: : a. Adequate (ability to meet patient's medical needs, ensures patient attends medical appts.) Patient's current cognitive status: : *Oriented to person, place, situation, time and present Patient's ability to cope with chronic illness : d. No chronic illness Patient gives permission to discuss discharge plans with: (name, relationship and number) : SONAL DEVLIN (DAUGHTER) Does the patient have the ability to pay for or attain post discharge needs / services? : Yes Functional screen assessment: : Can meet basic needs but may require referral for resources Family / Caregiver's ability to cope with chronic illness: : a. Adequate (ability to meet patient's medical needs, ensures patient attends medical appts.) Physical Status: : Independent with ADL's Equipment needed for post hospitalization: : Hospital Bed Is there a likelihood that the patient will require additional services to return to the preadmission environment? : Yes Living Arrangements: : Home Alone with Support Results of this evaluation have been discussed with: : Patient Patient with capacity for self-care or can be cared for in same environment as prior to hospitalization? : Yes Baseline cognitive status: : *Oriented to person, place, situation, time and present Physical environment modification needed / anticipated for discharge: : No Medication Management: : Patient states they do have transportation to pickling solution maker medications Medication Management: : Patient states can afford medications Planned post hospital services available for patient? : Yes Pharmacy name(s): : [address] Planned post hospital services covered by insurance plan? : Yes Does Patient have transportation to get home and to follow-up medical appointments when discharged from the hospital? : Yes Would patient like to participate in any Care Coordination programs (if applicable): : Not applicable Does the patient have electricity at home? : Yes Does the patient have running water in their house? : Yes Equipment in use: : Nebulizer Other Equipment comments: : HOME WITH HOME O2 Equipment agency name and contact information: : [employer] Mental health screen: : No mental health history Psychosocial status: : Independent adult (65+) Abuse/Neglect: : None Resources / Services in place: : DME Contact information for resources in use: : [employer] [phone] Problems identified by the patient regarding discharge: : NONE DCP Re-evaluation QUESTION: ANSWER Would patient like to participate in any Care Coordination programs (if applicable): : Not applicable PATIENT: ALEJANDRO SAENZ ENCOUNTER: [id number] MEDICAL RECORD#: [id number] ADMISSION DATE: 03/04/2021 DISCHARGE DATE: ATTENDING MD: MAUREEN OLIVA : AGE: 65 MARITAL STATUS: S DC PLAN ID: [id number] FACILITY: [facility] PRINTED ON: 03/10/21 11:45 CT All edits/amendments must be made on the electronic document DICTATION DATE: 03/10/211144 CEMENT HANDLER: JW 03/10/21 114 RPT#: [id number] DC DATE: STATUS: ADM IN [facility] [address] [place] [address] END OF REPORT
--- NOTE | 2021-03-10 12:04 | NUR ---
Nutrition Reassessment/Follow-up: S/p EGD with dilation yesterday = esophagitis, non-obstructing Schatzki's ring, & small hiatal hernia. Pt reports tremendous difference in ability to swallow since dilation. Eating well. Noted plans to d/c. Diet: Regular, Ensure TID No new wt; last wt: 135# (03/08) Last BM: 03/09 Labs noted: Glu 63 Meds noted: Deriann electrolyte protocol Nutrition Goals: -PO intake >=75% avg meal intake. -Stable wt. Nutrition Intervention: -Continue current diet as tolerated. -Monitor wt. -RD will follow up within 5-7 days if pt still admitted.
--- NOTE | 2021-03-10 12:12 | MORECARE ---
CASE MANAGEMENT DISCHARGE SUMMARY PATIENT: ALEJANDRO SAENZ UNIT: [id number] ADM DATE: 03/04/21 AGE: 65 : 54 SEX: F ROOM/BED: D.5014 AUTHOR: MECHE,VINICIO PHYSICIAN: REFERRING PHYSICIAN: MAUREEN PRIEST MD DATE OF SERVICE: 03/10/21 Case Management Discharge Planning Summary COMMENTS ENTERED DATE: 03/10/21 11:59 CT COMMENT TYPE: Discharge Planning REVIEWER: Ashely Plummer CM MET WITH PATIENT TO COMPLETE DCP AND OFFER AVAILABILTY OF SERVICES. PATIENT STATES THAT SHE LIVES INDEPENDENTLY AT HOME. PATIENT DAUGHTER IS PRESENT IN ROOM AT TIME OF ASSESSSMENT, PATIENT GAVE VERBAL CONSENT TO DISCUSS PLAN WITH DAUGHTER (SONAL DEVLIN [phone]. PATIENT STATES THAT DAUGHTER WILL TRANSPORT AND PLANS TO STAY WITH PATIENT WHEN DISCHARGED. PT DENIES NEED FOR TRANSPORTATION FOR FOLLOW UP DOCTOR APPOINTMENTS OR MEDICATIONS. PT STATES HER PCP IS DR. PRIEST AND SHE USES [facility] ON [facility]. CM DISCUSSED HOME HEALTH, REHAB SERVICES, AND NEED FOR ADDITONAL MEDICAL EQUIPMENT. WALK TEST PERFORMED PRIOR TO ASSESSMENT AND DETERMINED THAT PT WILL NEED HOME OXYGEN. AUGUSTINE FORM SIGNED AND PATIENT WISHES TO USE [facility] SHE ALREADY HAS AN NEBULIZER AT HOME. ZAKI PRUETT CONTACTED AT [phone] FOR O2 NEEDS. IMM DELIVERED WITH SIGNED COPY PLACED ON THE CHART. AUGUSTINE FORM SIGNED AND PLACED ON CHART WELL. DCP REVIEW SUMMARY ANTICIPATED D/C DATE: 03/10/2021 EXPECTED LOS : 6 CASE STATUS: DCP Initiated INITIAL REVIEW: 03/03/2021 INITIAL REVIEWER: Ashely Plummer FINAL DISCHARGE DISPOSITION: : FINAL REVIEWER: FINAL REVIEW DATE: DCP Focus Questions & Answers DCP Screen QUESTION: ANSWER High Risk Factors: : None Walking limitation: Patient stated self rated walking limitation present? : No Prior living environment: : Lives Alone Disability ranking: : Grade 1: No significant disability DCP Evaluation QUESTION: ANSWER Patient and/or caregiver agree upon recommended discharge plan? : Yes Family / Caregiver's ability to cope with chronic illness: : a. Adequate (ability to meet patient's medical needs, ensures patient attends medical appts.) Patient's current cognitive status: : *Oriented to person, place, situation, time and present Patient's ability to cope with chronic illness : d. No chronic illness Patient gives permission to discuss discharge plans with: (name, relationship and number) : SONAL DEVLIN (DAUGHTER) Does the patient have the ability to pay for or attain post discharge needs / services? : Yes Functional screen assessment: : Can meet basic needs but may require referral for resources Family / Caregiver's ability to cope with chronic illness: : a. Adequate (ability to meet patient's medical needs, ensures patient attends medical appts.) Physical Status: : Independent with ADL's Equipment needed for post hospitalization: : Hospital Bed Is there a likelihood that the patient will require additional services to return to the preadmission environment? : Yes Living Arrangements: : Home Alone with Support Results of this evaluation have been discussed with: : Patient Patient with capacity for self-care or can be cared for in same environment as prior to hospitalization? 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 : Yes Pharmacy name(s): : [address] Planned post hospital services covered by insurance plan? : Yes Does Patient have transportation to get home and to follow-up medical appointments when discharged from the hospital? : Yes Would patient like to participate in any Care Coordination programs (if applicable): : Not applicable Does the patient have electricity at home? : Yes Does the patient have running water in their house? : Yes Equipment in use: : Nebulizer Other Equipment comments: : HOME WITH HOME O2 Equipment agency name and contact information: : [facility] [place] Mental health screen: : No mental health history Psychosocial status: : Independent adult (65+) Abuse/Neglect: : None Resources / Services in place: : DME Contact information for resources in use: : [employer] [facility] [phone] Problems identified by the patient regarding discharge: : NONE DCP Re-evaluation QUESTION: ANSWER Would patient like to participate in any Care Coordination programs (if applicable): : Not applicable PATIENT: ALEJANDRO SAENZ ENCOUNTER: [id number] MEDICAL RECORD#: [id number] ADMISSION DATE: 03/04/2021 DISCHARGE DATE: ATTENDING MD: MAUREEN OLIVA : AGE: 65 MARITAL STATUS: S DC PLAN ID: [id number] FACILITY: [facility] PRINTED ON: 03/10/21 12:12 CT All edits/amendments must be made on the electronic document DICTATION DATE: 03/10/211211 MANAGER ANDROID: JW 03/10/211211 RPT#: [id number] DC DATE: STATUS: ADM IN [facility] [address] [place] [address] END OF REPORT
--- NOTE | 2021-03-10 13:01 | NUR ---
I have reviewed this patient and I concur with the Shift Assessment completed by the Licensed Practical Nurse today this shift.
[2021-03-10 13:12] LABS: IMMUNOGLOBULIN E 11 IU/mL (6-495)
--- NOTE | 2021-03-10 13:47 | NUR ---
PATIENT IS DISCHARGED HOME WITH DAUGHTER VIA WHEELCHAIR TO ED ENTRANCE, NO COMPLICATIONS.
--- NOTE | 2021-03-10 13:51 | MORECARE ---
CASE MANAGEMENT DISCHARGE SUMMARY PATIENT: ALEJANDRO SAENZ UNIT: [id number] ADM DATE: 03/04/21 AGE: 65 : 54 SEX: F ROOM/BED: D.3084 AUTHOR: MECHE,DOC PHYSICIAN: REFERRING PHYSICIAN: MAUREEN PRIEST MD DATE OF SERVICE: 03/10/21 Case Management Discharge Planning Summary COMMENTS ENTERED DATE: 03/10/21 13:37 CT COMMENT TYPE: Discharge Planning REVIEWER: Alessia Correa CM faxed DWO for Duo-neb to [facility] to [phone]. I have informed them to purchase the first Rx. from their pharmacy, but after that she should be receiving it from [facility] in the mail. They are both thankful and did not know that Medicare B would pay for the updraft medications. Home today. ENTERED DATE: 03/10/21 11:59 CT COMMENT TYPE: Discharge Planning REVIEWER: Ashely Plummer CM MET WITH PATIENT TO COMPLETE DCP AND OFFER AVAILABILTY OF SERVICES. PATIENT STATES THAT SHE LIVES INDEPENDENTLY AT HOME. PATIENT DAUGHTER IS PRESENT IN ROOM AT TIME OF ASSESSSMENT, PATIENT GAVE VERBAL CONSENT TO DISCUSS PLAN WITH DAUGHTER (SONAL DEVLIN [phone]. PATIENT STATES THAT DAUGHTER WILL TRANSPORT AND PLANS TO STAY WITH PATIENT WHEN DISCHARGED. PT DENIES NEED FOR TRANSPORTATION FOR FOLLOW UP DOCTOR APPOINTMENTS OR MEDICATIONS. PT STATES HER PCP IS DR. PRIEST AND SHE USES [facility] ON [facility]. CM DISCUSSED HOME HEALTH, REHAB SERVICES, AND NEED FOR ADDITONAL MEDICAL EQUIPMENT. WALK TEST PERFORMED PRIOR TO ASSESSMENT AND DETERMINED THAT PT WILL NEED HOME OXYGEN. AUGUSTINE FORM SIGNED AND PATIENT WISHES TO USE [facility] SHE ALREADY HAS AN NEBULIZER AT HOME. ZAKI PRUETT CONTACTED AT [phone] FOR O2 NEEDS. IMM DELIVERED WITH SIGNED COPY PLACED ON THE CHART. AUGUSTINE FORM SIGNED AND PLACED ON CHART WELL. DCP REVIEW SUMMARY ANTICIPATED D/C DATE: 03/10/2021 EXPECTED LOS : 6 CASE STATUS: DCP Initiated INITIAL REVIEW: 03/03/2021 INITIAL REVIEWER: Ashely Plummer FINAL DISCHARGE DISPOSITION: : FINAL REVIEWER: FINAL REVIEW DATE: DCP Focus Questions & Answers DCP Screen QUESTION: ANSWER High Risk Factors: : None Walking limitation: Patient stated self rated walking limitation present? : No Prior living environment: : Lives Alone Disability ranking: : Grade 1: No significant disability DCP Evaluation QUESTION: ANSWER Patient and/or caregiver agree upon recommended discharge plan? : Yes Family / Caregiver's ability to cope with chronic illness: : a. Adequate (ability to meet patient's medical needs, ensures patient attends medical appts.) Patient's current cognitive status: : *Oriented to person, place, situation, time and present Patient's ability to cope with chronic illness : d. No chronic illness Patient gives permission to discuss discharge plans with: (name, relationship and number) : SONAL DEVLIN (DAUGHTER) Does the patient have the ability to pay for or attain post discharge needs / services? : Yes Functional screen assessment: : Can meet basic needs but may require referral for resources Family / Caregiver's ability to cope with chronic illness: : a. Adequate (ability to meet patient's medical needs, ensures patient attends medical appts.) Physical Status: : Independent with ADL's Equipment needed for post hospitalization: : Hospital Bed Is there a likelihood that the patient will require additional services to return to the preadmission environment? : Yes Living Arrangements: : Home Alone with Support Results of this evaluation have been discussed with: : Patient Patient with capacity for self-care or can be cared for in same environment as prior to hospitalization? : Yes Baseline cognitive status: : *Oriented to person, place, situation, time and present Physical environment modification needed / anticipated for discharge: : No Medication Management: : Patient states they do have transportation to orange picker medications Medication Management: : Patient states can afford medications Planned post hospital services available for patient? : Yes Pharmacy name(s): : [facility] Planned post hospital services covered by insurance plan? : Yes Does Patient have transportation to get home and to follow-up medical appointments when discharged from the hospital? : Yes Would patient like to participate in any Care Coordination programs (if applicable): : Not applicable Does the patient have electricity at home? : Yes Does the patient have running water in their house? : Yes Equipment in use: : Nebulizer Other Equipment comments: : HOME WITH HOME O2 Equipment agency name and contact information: : [employer] Mental health screen: : No mental health history Psychosocial status: : Independent adult (65+) Abuse/Neglect: : None Resources / Services in place: : DME Contact information for resources in use: : [facility] [phone] Problems identified by the patient regarding discharge: : NONE DCP Re-evaluation QUESTION: ANSWER Would patient like to participate in any Care Coordination programs (if applicable): : Not applicable PATIENT: ALEJANDRO SAENZ ENCOUNTER: [id number] MEDICAL RECORD#: [id number] ADMISSION DATE: 03/04/2021 DISCHARGE DATE: 03/10/2021 ATTENDING MD: MAUREEN OLIVA : AGE: 65 MARITAL STATUS: S DC PLAN ID: [id number] FACILITY: [facility] PRINTED ON: 03/10/21 13:51 CT All edits/amendments must be made on the electronic document DICTATION DATE: 03/10/211350 DRY WALL PLASTERER: JW 03/10/21 135 RPT#: [id number] DC DATE:03/10/21 STATUS: DIS IN [facility] [address] [place] [address] END OF REPORT
[2021-03-11 06:11] LABS: IGG SUBCLASS 1 625 mg/dL (248-810); IGG SUBCLASS 2 121 mg/dL (130-555); IGG SUBCLASS 3 47 mg/dL (15-102); IGG SUBCLASS 4 24 mg/dL (2-96); IGGS - IGG SERUM 884 mg/dL (586-1602)
--- NOTE | 2021-03-12 18:34 | MORECARE ---
CASE MANAGEMENT DISCHARGE SUMMARY PATIENT: ALEJANDRO SAENZ UNIT: [id number] ADM DATE: 03/04/21 AGE: 65 : 54 SEX: F ROOM/BED: D.5645 AUTHOR: MECHE,DOC PHYSICIAN: REFERRING PHYSICIAN: MAUREEN PRIEST MD DATE OF SERVICE: 03/12/21 Case Management Discharge Planning Summary COMMENTS ENTERED DATE: 03/10/21 13:37 CT COMMENT TYPE: Discharge Planning REVIEWER: Alessia Correa CM faxed DWO for Duo-neb to [facility] to [phone]. I have informed them to purchase the first Rx. from their pharmacy, but after that she should be receiving it from [facility] in the mail. They are both thankful and did not know that Medicare B would pay for the updraft medications. Home today. ENTERED DATE: 03/10/21 11:59 CT COMMENT TYPE: Discharge Planning REVIEWER: Ashely Plummer CM MET WITH PATIENT TO COMPLETE DCP AND OFFER AVAILABILTY OF SERVICES. PATIENT STATES THAT SHE LIVES INDEPENDENTLY AT HOME. PATIENT DAUGHTER IS PRESENT IN ROOM AT TIME OF ASSESSSMENT, PATIENT GAVE VERBAL CONSENT TO DISCUSS PLAN WITH DAUGHTER (SOANL DEVLIN [phone]. PATIENT STATES THAT DAUGHTER WILL TRANSPORT AND PLANS TO STAY WITH PATIENT WHEN DISCHARGED. PT DENIES NEED FOR TRANSPORTATION FOR FOLLOW UP DOCTOR APPOINTMENTS OR MEDICATIONS. PT STATES HER PCP IS DR. PRIEST AND SHE USES [facility] ON [facility]. CM DISCUSSED HOME HEALTH, REHAB SERVICES, AND NEED FOR ADDITONAL MEDICAL EQUIPMENT. WALK TEST PERFORMED PRIOR TO ASSESSMENT AND DETERMINED THAT PT WILL NEED HOME OXYGEN. AUGUSTINE FORM SIGNED AND PATIENT WISHES TO USE [employer] SHE ALREADY HAS AN NEBULIZER AT HOME. ZAKI PRUETT CONTACTED AT [phone] FOR O2 NEEDS. IMM DELIVERED WITH SIGNED COPY PLACED ON THE CHART. AUGUSTINE FORM SIGNED AND PLACED ON CHART WELL. DCP REVIEW SUMMARY ANTICIPATED D/C DATE: 03/10/2021 EXPECTED LOS : 6 CASE STATUS: DCP Initiated INITIAL REVIEW: 03/03/2021 INITIAL REVIEWER: Ashely Plummer FINAL DISCHARGE DISPOSITION: : FINAL REVIEWER: FINAL REVIEW DATE: DCP Focus Questions & Answers DCP Screen QUESTION: ANSWER High Risk Factors: : None Walking limitation: Patient stated self rated walking limitation present? : No Prior living environment: : Lives Alone Disability ranking: : Grade 1: No significant disability DCP Evaluation QUESTION: ANSWER Patient gives permission to discuss discharge plans with: (name, relationship and number) : SONAL DEVLIN (DAUGHTER) Patient's ability to cope with chronic illness : d. No chronic illness Patient's current cognitive status: : *Oriented to person, place, situation, time and present Family / Caregiver's ability to cope with chronic illness: : a. Adequate (ability to meet patient's medical needs, ensures patient attends medical appts.) Patient and/or caregiver agree upon recommended discharge plan? : Yes Physical Status: : Independent with ADL's Family / Caregiver's ability to cope with chronic illness: : a. Adequate (ability to meet patient's medical needs, ensures patient attends medical appts.) Functional screen assessment: : Can meet basic needs but may require referral for resources Does the patient have the ability to pay for or attain post discharge needs / services? : Yes Living Arrangements: : Home Alone with Support Is there a likelihood that the patient will require additional services to return to the preadmission environment? : Yes Equipment needed for post hospitalization: : Hospital Bed Baseline cognitive status: : *Oriented to person, place, situation, time and present Patient with capacity for self-care or can be cared for in same environment as prior to hospitalization? : Yes Results of this evaluation have been discussed with: : Patient Physical environment modification needed / anticipated for discharge: : No Medication Management: : Patient states can afford medications Medication Management: : Patient states they do have transportation to pickling solution maker medications Pharmacy name(s): : [facility] Planned post hospital services available for patient? : Yes Does Patient have transportation to get home and to follow-up medical appointments when discharged from the hospital? : Yes Planned post hospital services covered by insurance plan? : Yes Would patient like to participate in any Care Coordination programs (if applicable): : Not applicable Does the patient have electricity at home? : Yes Does the patient have running water in their house? : Yes Equipment in use: : Nebulizer Other Equipment comments: : HOME WITH HOME O2 Equipment agency name and contact information: : [employer] Mental health screen: : No mental health history Psychosocial status: : Independent adult (65+) Abuse/Neglect: : None Resources / Services in place: : DME Contact information for resources in use: : [facility] [phone] Problems identified by the patient regarding discharge: : NONE DCP Re-evaluation QUESTION: ANSWER Would patient like to participate in any Care Coordination programs (if applicable): : Not applicable PATIENT: ALEJANDRO SAENZ ENCOUNTER: [id number] MEDICAL RECORD#: [id number] ADMISSION DATE: 03/04/2021 DISCHARGE DATE: 03/10/2021 ATTENDING MD: MAUREEN OLIVA : AGE: 65 MARITAL STATUS: S DC PLAN ID: [id number] FACILITY: [facility] PRINTED ON: 03/12/21 18:34 CT All edits/amendments must be made on the electronic document DICTATION DATE: 03/12/211833 SYSTEMS DESIGN ENGINEER: JW 03/12/211833 RPT#: [id number] DC DATE:03/10/21 STATUS: DIS IN [facility] [address] [place] [address] END OF REPORT
== END 2021-03-10 13:48 | disposition home or self-care (01) | DRG 190 ==
LOC: D.ER 15:21 → OBSVTIME 19:09 → D.M2 19:09
PROVIDERS: Emergency Medicine; Family Medicine; Internal Medicine Gastroenterology; Internal Medicine Pulmonary Disease; ADMIT Family Medicine; ATTEND Family Medicine
PROC: 0D758ZZ Dilation of Esophagus, Via Natural or Artificial Opening Endoscopic (ICD-10-PCS; 2021-03-09)
PROC: 0DB28ZX Excision of Middle Esophagus, Via Natural or Artificial Opening Endoscopic, Diagnostic (ICD-10-PCS; 2021-03-09)
PROC: 0DB68ZX Excision of Stomach, Via Natural or Artificial Opening Endoscopic, Diagnostic (ICD-10-PCS; principal; 2021-03-09 15:00)
DX: J44.1 Chronic obstructive pulmonary disease with (acute) exacerbation (principal); J96.01 Acute respiratory failure with hypoxia; J81.0 Acute pulmonary edema; J44.0 Chronic obstructive pulmonary disease with (acute) lower respiratory infection; J20.9 Acute bronchitis, unspecified; K58.9 Irritable bowel syndrome, unspecified; G89.29 Other chronic pain; M54.9 Dorsalgia, unspecified; F41.8 Other specified anxiety disorders; R55 Syncope and collapse; G62.9 Polyneuropathy, unspecified; K21.00 Gastro-esophageal reflux disease with esophagitis, without bleeding; K22.2 Esophageal obstruction; K44.9 Diaphragmatic hernia without obstruction or gangrene; Z87.01 Personal history of pneumonia (recurrent); Z87.891 Personal history of nicotine dependence